=== PATIENT | male | born 1990 | race Caucasian/White ===

== ENCOUNTER 2021-08-31 09:48 | Emergency (ER) | payer OTHER, SELFPAY ==
[2021-08-31 09:53] VITALS: BP 108/73; PULSE 98; RESP 16; TEMP 36.8; O2SAT 98; BMI 26.5
--- NOTE | 2021-08-31 10:04 | XR_ITS ---
WS: [id number] Exam: XR ankle LT min 3V* [id number] Date/Time of Exam: 08/31/2021 10:04 AM Reason For Exam: injury Exam: XR ankle LT min 3V* [id number] Date/Time of Exam: 08/31/2021 10:04 AM Reason For Exam: injury No acute fracture or dislocation. Mild soft tissue swelling along the lateral malleolus. The ankle mo rtise is intact. XR/XR ankle LT min 3V* [id number] IMPRESSION: 1. Mild lateral soft tissue swelling. No fracture or dislocation.
--- NOTE | 2021-08-31 10:04 | W.ED.LOWEXIN ---
HPI - Extremity Injury (Lower) General: Chief Complaint: Fall Stated Complaint: Fell and hurt Left ankle pain Time Seen by Provider: 08/31/21 09:55 Source: patient Mode of arrival: wheelchair Limitations: no limitations History of Present Illness: Patient is a 30-year-old male presents to ED today for evaluation of left ankle injury. Patient states around 2:30 AM while at work he jumped down from a pickup truck and rolled his left ankle. Patient has been minimal weightbearing since the injury. He has no other injuries or complaints at this time. Patient states this is not a workers comp injury. MD complaint: ankle injury Onset (ago): hour(s) Injury: Left: ankle Place: work Severity: moderate Relieving factors: immobilization Exacerbating factors: weight bearing, movement and palpation Associated symptoms: Reports inability to bear weight Other symptoms: none Review of Systems Musc: Reports: joint pain (L ankle) and joint swelling (L ankle) Neuro: Denies: numbness in extremities or sensory changes Physical Exam Const: COMMON NORMALS: no acute distress, average body habitus, patient oriented x3, no limitations, healthy appearing, alert and well nourished Extremity: GENERAL: Yes normal exam except as noted LEFT LOWER EXTREMITY: Yes ankle joint (TTP and swelling to lateral malleolus) Left ankle: Yes neurovascular exam (normal) Neuro: COMMON NORMALS: patient oriented x3, moves all extremities, no focal motor deficits and no sensory deficits noted SENSORIUM/ORIENTATION: Yes alert Course Vital Signs: Vital signs: Vital Signs Temperature 97.8 F 08/31/21 10:37 Pulse Rate 98 08/31/21 10:37 Respiratory Rate 16 08/31/21 10:37 Blood Pressure 139/74 08/31/21 10:37 Pulse Oximetry 96 08/31/21 10:37 MDM - Extremity Injury (Lower) Medical Decision Making XR negative. Will ANUPAM wrap/crutches. Discussed conservative/RICE therapy at home. Follow up with PCP in 1-2 weeks for continued pain. Lab Data Radiology Impressions Ankle X-Ray 08/31/21 10:04 IMPRESSION: 1. Mild lateral soft tissue swelling. No fracture or dislocation. Discharge Plan Discharge Patient Disposition: Home Clinical Impression: Left ankle sprain Qualifiers: Encounter type: initial encounter Involved ligament of ankle: unspecified ligament Qualified Code(s): S93.402A - Sprain of unspecified ligament of left ankle, initial encounter Condition: Stable Discharge Orders: Discharge ED (Routine); Ordered 08/31/21 Ordered By: Ade Horton Patient Instructions: Ankle Sprain (ED), RICE Therapy Coding Level of Care Code ED [facility] Consultant for Fartun Muir
[2021-08-31 10:36] VITALS: BP 139/74; PULSE 98; RESP 16; TEMP 36.6; O2SAT 96
[2021-08-31 10:37] VITALS: BP 139/74; PULSE 98; RESP 16; TEMP 36.6; O2SAT 96
== END 2021-08-31 10:30 | disposition home or self-care (01) ==
PROVIDERS: Emergency Provider Physician Assistant
DX: S93.402A Sprain of unspecified ligament of left ankle, initial encounter (principal); X50.1XXA Overexertion from prolonged static or awkward postures, initial encounter
CPT/HCPCS: 73610; 99282; E0114